=== PATIENT | male | born 1990 | race Caucasian/White ===

== ENCOUNTER 2020-08-21 11:01 | Emergency (ER) | payer SELFPAY ==
[2020-08-21 11:08] VITALS: BP 126/80; PULSE 89; RESP 16; TEMP 36.7; O2SAT 97; BMI 25.7
--- NOTE | 2020-08-21 11:55 | US_ITS ---
WS: [id number] TESTICULAR ULTRASOUND HISTORY: Pain ecchymosis COMPARISON: 03/25/2018 TECHNIQUE: Real-time and color Doppler imaging or utilized to perform a testicular ultrasound. Right testicle: 4.6 cm x 1.9 cm x 2.9 cm. Normal size and echogenicity. No mass or torsion. Normal color Doppler is present throughout. Systolic and diastolic velocities are both present. No significant hydrocele. There is a large amount of soft tissue thickening around the testicle and s crotal wall thickening. Right epididymis: Normal epididymis with no increased vascularity. Left testicle: 4.0 cm x 2.5 cm x 2.7 cm. LEFT testicle is normal size but it is being displaced posteriorly by a large complex fluid collectio n with multiple septations along the anterior testicle. There was a large simple hydrocele noted on a prior study from 2018. This is a complex collection with thick septations. Complex hydrocele measure s at least 4.9 x 7.7 cm. There is diffuse moderate scrotal wall thickening and edema. Normal color Doppler is present throughout. Systolic and diastolic velocities are both present. Left epididymis: Normal epididymis with no increased vascularity. US/US scrotum [id number] IMPRESSION: 1. No testicular torsion or mass. 2. Bilateral diffuse soft tissue thickening surrounding the testicles and scro james wall thickening. Favor this is probably blood products and less likely infe ction as there is no increased vascularity. 3. Large complex left-sided fluid collection surrounding the testicle. Probabl y a complex hydrocele. Could be resolving hematoma.
--- NOTE | 2020-08-21 12:05 | W.ED.MALEGU ---
HPI - Male Genitourinary General: Chief complaint: Urogenital-Male Stated complaint: Pain in Groin Area Time Seen by Provider: 08/21/20 11:52 History of Present Illness: HPI Narrative: 30-year-old male presents emergency room with significant swelling in the left testicle. He has discomfort as well. He states he was having intercourse last night and he felt a popping sensation now it is become what he describes as purple. He denies any dysuria urgency or frequency no hematuria no direct trauma to the testicle. No fever sweats or chills. 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 This was sometime ago. MD Complaint: testicle pain and testicle swelling Onset (ago): hour(s) Duration: constant Location: left testicle Radiation: left inguinal region Severity: mild Quality: aching Relieving factors: none Exacerbating factors: movement Associated symptoms: Deny discharge, dysuria, fevers/chills, hematuria, nausea, rash, swelling, urinary incontinence, urinary retention, mass or vomiting Review of Systems Const: Denies: fever(s), chills, body aches, change in appetite, fatigue or malaise ENMT: Denies: throat pain, ear or mastoid pain, nasal discharge or nasal congestion Card: Denies: chest pain, edema, dyspnea on exertion or orthopnea Resp: Denies: dyspnea, productive cough or non-productive cough GI: Denies: nausea or vomiting : Denies: dysuria, urinary incontinence or hematuria Skin/Breast: Denies: rash or pruritus PFSH ED PFSH: Medical History (Updated 08/21/20 @ 14:59 by Darell Glover MD) Metatarsal fracture Family History (Updated 08/21/20 @ 14:55 by Darell Glover MD) Denies family history of Anesthesia complication Bleeding disorder Social History (Updated 08/21/20 @ 14:57 by Darell Glover MD) Smoking and tobacco status: current some day smoker Alcohol intake: unknown Current occupational status: unemployed Sexually active: Yes Physical Exam Const: COMMON NORMALS: no acute distress GENERAL APPEARANCE: cooperative and comfortable ORIENTATION/CONSCIOUSNESS: Yes awake, Yes oriented to person, Yes oriented to place and Yes oriented to time HENMT: COMMON NORMALS: normocephalic, atraumatic and hearing grossly normal bilaterally HEAD & SCALP: normocephalic and atraumatic Neck/C-Spine: COMMON NORMALS: no JVD Resp: COMMON NORMALS: normal respiratory effort, No retractions, No use of accessory muscles and clear to auscultation bilaterally AUSCULTATION: clear to auscultation bilaterally Cardio: COMMON NORMALS: no JVD, regular rate, regular rhythm and No murmurs present (Cardio) RATE: regular rate RHYTHM: regular rhythm GI: COMMON NORMALS: Soft to palpation and No hepatosplenomegaly present AUSCULTATION: Yes normoactive bowel sounds PALPATION: Yes Soft to palpation, No Tenderness to palpation present (GI), No Guarding due to palpation present (GI) and Yes No hepatosplenomegaly present : OTHER: Significant swelling and ecchymosis moderate tenderness of the left testicle penis is normal circumcised with no evidence of trauma or bruising. There is no hernia. Seems to emanate directly from the scrotum rather than be a hernia defect. Neuro: SENSORIUM/ORIENTATION: Yes oriented to person, Yes oriented to place and Yes oriented to time Course Vital Signs: Vital signs: Vital Signs Temperature 98.1 F 08/21/20 11:08 Pulse Rate 76 08/21/20 15:11 Respiratory Rate 16 08/21/20 11:08 Blood Pressure 134/73 08/21/20 15:11 Pulse Oximetry 100 08/21/20 15:11 MDM - Male MDM Narrative: Medical decision making narrative: Dr. Glover came and seen the patient reviewed the ultrasound he feels it is a ruptured hydrocele does not need to intervene at this point he recommends follow-up in his office in a week discussed with the patient myself after Dr. Glover it seen and will discharge him home with diclofenac to use as needed. Lab Data: Labs: Lab Results 08/21/20 08/21/20 08/21/20 Range/Units 13:05 13:05 13:25 WBC 10.5 H (4.0-10.0) 10^3/ uL RBC 4.50 (4.1-5.3) 10^6/u L Hgb 14.4 (11.7-16.6) g/dL Hct 42.1 (42.0-52.0) % MCV 93.6 (80-94) fL MCH 32.0 (28.0-34.0) pg MCHC 34.2 (30.0-36.0) g/dL RDW 13.2 (12.1-15.1) % Plt Count 242 (130-400) 10^3/c mm MPV 9.9 (7.4-10.4) fL Neut % (Auto) 70.9 % Lymph % (Auto) 17.9 % [place] % (Auto) 8.7 % Eos % (Auto) 1.7 % Baso % (Auto) 0.5 % Neut # (Auto) 7.46 (1.8-7.7) 10^3/u L Lymph # (Auto) 1.9 (0.8-4.8) 10^3/u L [place] # (Auto) 0.9 (0.2-0.9) 10^3/u L Eos # (Auto) 0.2 (0.0-0.8) 10^3/u L Baso # (Auto) 0.1 (0.0-0.1) 10^3/u L Nucleated RBC % (a uto) 0 % Nucleated RBCs # 0.0 /100WBC Sodium 137 (136-145) mmol/L Potassium 4.2 (3.5-5.1) mmol/L Chloride 104 (98-107) mmol/L Carbon Dioxide 25 (22-29) mmol/L Anion Gap 12.2 (5-19) BUN 12 (6-20) mg/dL Creatinine 0.8 (0.7-1.2) mg/dL GFR Calculation 112.8 (90-130) mL/min Glucose 97 (65-115) mg/dL Calculated Osmolal ity 284 L (285-295) mOsm/k g Calcium 8.5 (8.5-10.5) mg/dL Urine Color Yellow (Yellow) Urine Appearance Hazy A (CLEAR) Urine pH 7 (5-7) Ur Specific Gravit y 1.010 (1.005-1.030) Urine Protein Neg (Negative) Urine Glucose (UA) Norm (Normal) Urine Ketones Negative (Negative) Urine Blood Neg (Negative) Urine Nitrate Negative (Negative) Urine Bilirubin Neg (Negative) Urine Urobilinogen 1 H (Negative) mg/dL Ur Leukocyte Maxine ase Negative (Negative) Urine RBC None (0-2) /hpf Urine WBC 0-4 H (0-5) /hpf Ur Squamous Epith Cells 5-10 H (0-5) /hpf Amorphous Sediment Not Reportable Urine Bacteria Trace (NONE) /hpf Discharge Plan Discharge Patient Disposition: Home Clinical Impression: Hydrocele Condition: Stable Prescriptions: New diclofenac sodium 75 mg tablet,delayed release (DR/EC) 75 mg PO Q12H PRN (Reason: pain) Qty: 20 RF: 0 Discharge Orders: Discharge ED (Routine); Ordered 08/21/20 Ordered By: Isauro Clarke Discharge Diet: Usual diet Discharge Activity: Resume usual activity Patient Instructions: Opioid Safety Activity Restrictions/Additional Instructions: His management will arrange for follow-up with Dr. Glover in his office in approximately 1 week. 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
[2020-08-21 12:09] VITALS: BP 130/87; PULSE 84; O2SAT 99
[2020-08-21 13:22] VITALS: PULSE 88; O2SAT 100
[2020-08-21 13:25] LABS: Basophils # 0.1 10^3/uL (0.0-0.1); Basophils % 0.5 %; Eosinophils # 0.2 10^3/uL (0.0-0.8); Eosinophils % 1.7 %; Hematocrit 42.1 % (42.0-52.0); Hemoglobin 14.4 g/dL (11.7-16.6); Lymphocytes # 1.9 10^3/uL (0.8-4.8); Lymphocytes % 17.9 %; Mean Corpuscular HGB Conc 34.2 g/dL (30.0-36.0); Mean Corpuscular Volume 93.6 fL (80-94); Mean Platelet Volume 9.9 fL (7.4-10.4); Monocytes # 0.9 10^3/uL (0.2-0.9); Monocytes % 8.7 %; Neutrophils # 7.46 10^3/uL (1.8-7.7); Neutrophils % 70.9 %; Nucleated Red Blood Cells % 0 %; Platelet Count 242 10^3/cmm (130-400); Red Cell Distribution Width 13.2 % (12.1-15.1); White Blood Count 10.5 10^3/uL (4.0-10.0)
[2020-08-21 13:43] LABS: Anion Gap 12.2 (5-19); Blood Urea Nitrogen 12 mg/dL (6-20); Calcium 8.5 mg/dL (8.5-10.5); Carbon Dioxide 25 mmol/L (22-29); Chloride 104 mmol/L (98-107); Glomerular Filtration Rate 112.8 mL/min (90-130); Glucose 97 mg/dL (65-115); Osmolality Calculated 284 mOsm/kg (285-295); Potassium 4.2 mmol/L (3.5-5.1); Sodium 137 mmol/L (136-145)
[2020-08-21 13:52] LABS: Glucose Urine UA Norm (Normal); Ketones Urine Negative (Negative); Protein Urine Neg (Negative); Urine Appearance Hazy (CLEAR); Urine Color Yellow (Yellow); pH Urine 7 (5-7)
[2020-08-21 13:53] LABS: Add Urine Microscopic? YES; Bilirubin Urine Neg (Negative); Blood Urine Neg (Negative); Leukocyte Esterase Urine Negative (Negative); Nitrate Urine Negative (Negative); Urobilinogen Urine 1 mg/dL (Negative)
[2020-08-21 13:58] LABS: WBC Urine 0-4 /hpf (0-5)
[2020-08-21 13:59] LABS: Add Urine Culture? No; Bacteria Urine TRACE /hpf
--- NOTE | 2020-08-21 14:47 | PM.CONSULT ---
Providers/Reason For Consult Consulting Physican/Specialty*: Urology/Glover Reason for Consult*: Scrotal trauma Requesting Ifrahan: Dr. Alavrez emergency department History of Present Illness History of Present Illness Bola Caruso is a 30 year old male who I apparently evaluated many years ago for a left asymptomatic hydrocele. At that time the decision was made to treat conservatively. He has not had any really significant problems related to the hydrocele until presenting today to the emergency department. 2 days ago during intercourse his fianc?e came down from top heavily and he felt a pop in his scrotum. Had associated pain in the scrotum. No penile pain no automatic detumescence or swelling of the penis. On examining the scrotum he noticed that his chronic hydrocele could no longer be palpated in his scrotum was deflated . Over the next 2 days he has had increasing discomfort and swelling. Bruising has occurred as well. No fever or chills no other significant symptoms systemically. An ultrasound was performed that showed intact testicles bilaterally, septated collection in the left tunica vaginalis consistent with acute bleed and possible hydrocele fluid. This was compared with his old ultrasound from several years ago that showed a simple hydrocele and normal testicle. Physical exam shows skin bruising and skin thickening and left hemiscrotal swelling without evidence of infection. There does appear to be a accumulation of fluid consistent with a hematocele or hydrocele. No severe tenderness. No evidence of hernia. The left testicle is not palpable because of the hematocele. The right testicle is normal. The phallus is also palpably normal and not swollen. No evidence of a penile fracture. Reviewed with the patient. Recommended conservative management with ice etc. I will see him back in 2 weeks in the clinic or sooner if he is having difficulty. We did review surgical options for hydrocele but would encourage if he wants to pursue that to avoid any surgery in the acute phase. Review of Systems Const: Denies: fever(s) or chills Eyes: Denies: change in vision or blurry vision ENMT: Denies: throat pain or hoarseness Card: Denies: chest pain Resp: Denies: dyspnea or productive cough GI: Reports: abdominal pain (Left groin) : Reports: other (Scrotal pain and swelling. See HPI); Denies: difficulty urinating, dysuria or hematuria Musc: Denies: neck pain, back pain or joint swelling Skin/Breast: Reports: erythema (See HPI for scrotal findings); Denies: rash Neuro: Denies: headache(s), confusion or Slurred speech present Psych: Denies: anxiety, depression or memory loss Endo: Denies: polyuria or hot flashes Tre/Lymph: Denies: easy bruising, easy bleeding or enlarged lymph nodes All/Imm: Denies: urticaria or acute wheezing Meds/Allergies Home Medications and Allergies Home Medications Medication Instructions Recorded Confirmed Last Taken Type diclofenac sodium 75 mg PO Q12H PRN #20 tab 08/21/20 Unknown Rx Allergies Allergy/AdvReac Type Severity Reaction Status Date / Time No Known Allergies Allergy Verified 08/21/20 11:12 PFSH Acute PFSH: Medical History (Updated 08/21/20 @ 14:59 by Darell Glover MD) Metatarsal fracture Family History (Updated 08/21/20 @ 14:55 by Darell Glover MD) Denies family history of Anesthesia complication Bleeding disorder Social History (Updated 08/21/20 @ 14:57 by Darell Glover MD) Smoking and tobacco status: current some day smoker Alcohol intake: unknown Current occupational status: unemployed Sexually active: Yes Vitals/I&O/Wt Last Vital Signs Temp 98.1 F 08/21/20 11:08 Pulse 88 08/21/20 13:22 Resp 16 08/21/20 11:08 BP 130/87 08/21/20 12:09 Pulse Ox 100 08/21/20 13:22 Weight last 48 hrs Weight 190 lb Physical Exam Const: COMMON NORMALS: no acute distress, alert and well nourished GENERAL APPEARANCE: well kempt and well developed ORIENTATION/CONSCIOUSNESS: not confused HENMT: COMMON NORMALS: normocephalic and atraumatic HEAD & SCALP: normocephalic and atraumatic Eye: COMMON NORMALS: conjunctivae normal and no scleral icterus CONJUNCTIVA: Yes conjunctivae normal Neck/C-Spine: GENERAL: Yes normal visual inspection Resp: COMMON NORMALS: normal respiratory effort EFFORT & INSPECTION: No labored and No Actively coughing GI: COMMON NORMALS: Soft to palpation PALPATION: Yes Soft to palpation and No Tenderness to palpation present (GI) RECTAL EXAM: Yes visual inspection normal, Yes normal sphincter tone, Yes prostate normal, No prostate abnormal and No mass : MALE GROIN/PERINEUM EXAM: No ecchymosis and No hernia PENIS: normal penis MEATUS: meatus normal, no meatla discharge and No Blood at meatus present TESTES: No absent testicle OTHER: Markedly swollen LEFT hemiscrotum with bruising and some redness. Skin is thickened. Palpably there is a hydrocele or hematocele. No hernia. Normal cord proximal to the swollen scrotum. Phallus is normal without evidence of fracture. The right testicle is normal. Neuro: SENSORIUM/ORIENTATION: Yes alert Psych: COMMON NORMALS: mental status grossly normal APPEARANCE: Yes grossly normal and Yes well kempt ATTITUDE: Yes calm and Yes engaged Skin: COMMON NORMALS: no rashes or lesions noted and no jaundice GENERAL SKIN EXAM: no rashes or lesions noted A&P Assessment and plan (1) Hematocele: Clinical evidence of hematocele both physical exam and ultrasound with clinical symptoms consistent with traumatic rupture. Status: Acute (2) Hydrocele: Chronic asymptomatic left hydrocele with recent trauma likely converting to hematocele. No evidence of testicular rupture on ultrasound. 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
[2020-08-21 15:11] VITALS: BP 134/73; PULSE 76; O2SAT 100
== END 2020-08-21 15:10 | disposition home or self-care (01) ==
PROVIDERS: Emergency Provider Family Medicine
DX: N43.3 Hydrocele, unspecified (principal); F17.210 Nicotine dependence, cigarettes, uncomplicated
CPT/HCPCS: 76870; 80048; 81001; 85025; 99283

== ENCOUNTER → 2021-01-15 14:49 | Outpatient (BNVA) | payer OTHER, SELFPAY | PROVIDERS: PCP Urology; Visit Provider Nurse Practitioner Family | DX: Z20.822 Contact with and (suspected) exposure to COVID-19 (principal) | CPT/HCPCS: 87635 ==

== ENCOUNTER 2021-02-14 18:48 | Emergency (ER) | payer OTHER, SELFPAY ==
[2021-02-14 19:06] VITALS: BP 141/69; PULSE 84; RESP 18; TEMP 36.6; O2SAT 97; BMI 27.1
--- NOTE | 2021-02-14 19:18 | ECG_ITS ---
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
[2021-02-14] MEDS: sodium chloride 0.9% 1,000 ML 999 ML IV (19:30)
--- NOTE | 2021-02-14 19:31 | W.ED.NEUROSD ---
HPI - Neuro Symptoms/Deficit General: Chief Complaint: Neuro Symptoms/Deficit Stated Complaint: electric shock, no engery, fall Time Seen by Provider: 02/14/21 19:15 Source: patient Mode of arrival: ambulatory Limitations: no limitations History of Present Illness: HPI Narrative: 31-year-old male states he was electrocuted yesterday with 220 well. He states since then he has had some generalized fatigue. He denies loss consciousness denies any headache or pain anywhere just that he has felt tired. Denies any vomiting or diarrhea. Denies any worsening improving factors. Associated symptoms: Deny chest pain, headache(s), nausea or vomiting Review of Systems Const: Denies: fever(s), chills, body aches or change in appetite Eyes: Denies: blurry vision or eye discomfort ENMT: Denies: throat pain or dental pain Card: Denies: chest pain Resp: Denies: dyspnea GI: Denies: abdominal pain, nausea, vomiting or diarrhea : Denies: dysuria Musc: Denies: neck pain or back pain Skin/Breast: Denies: rash Neuro: Reports: weakness in extremities; Denies: headache(s) Psych: Denies: depression Tre/Lymph: Denies: easy bruising All/Imm: Denies: urticaria PFSH ED PFSH: Medical History Metatarsal fracture Family History Denies family history of Anesthesia complication Bleeding disorder Social History Smoking and tobacco status: current some day smoker Alcohol intake: unknown Current occupational status: unemployed Sexually active: Yes Physical Exam Const: COMMON NORMALS: no acute distress, patient oriented x3 and healthy appearing HENMT: COMMON NORMALS: normocephalic and atraumatic HEAD & SCALP: normocephalic and atraumatic Eye: COMMON NORMALS: Equal, round and reactive pupils present and EOMs intact bilaterally PUPIL: Yes Equal, round and reactive pupils present Neck/C-Spine: COMMON NORMALS: full ROM and supple Chest: COMMONS NORMALS: normal inspection of the chest and normal palpation of entire chest wall Resp: COMMON NORMALS: normal respiratory effort, No retractions, No use of accessory muscles and clear to auscultation bilaterally AUSCULTATION: clear to auscultation bilaterally Cardio: COMMON NORMALS: regular rate, regular rhythm and No murmurs present (Cardio) RATE: regular rate RHYTHM: regular rhythm GI: COMMON NORMALS: Normal to inspection, nondistended, normoactive bowel sounds present, Soft to palpation, non-tender and no masses PALPATION: Yes Soft to palpation Extremity: COMMON NORMALS: normal to inspection and full ROM Neuro: COMMON NORMALS: patient oriented x3, moves all extremities and no focal motor deficits Psych: COMMON NORMALS: mental status grossly normal, Normal thought process present and cooperative THOUGHT PROCESS: Normal thought process present Skin: COMMON NORMALS: no rashes or lesions noted and no wounds GENERAL SKIN EXAM: no rashes or lesions noted Course Vital Signs: Vital signs: Vital Signs Temperature 97.9 F 02/14/21 19:06 Pulse Rate 89 02/14/21 20:29 Respiratory Rate 21 H 02/14/21 20:29 Blood Pressure 141/69 02/14/21 19:06 Pulse Oximetry 97 02/14/21 20:29 MDM - Neuro Symptoms/Deficit MDM Narrative: Medical decision making narrative: Patient presents today after a mild electrocution he is well-appearing here patient's blood work and EKG here are all normal. Patient is stable for discharge is to continue to hydrate he is to return if worsening. He understands agrees to plan. Lab Data: Labs: Lab Results 02/14/21 02/14/21 19:30 19:30 WBC 7.9 10^3/uL 10^3/ uL (4.0-10.0) RBC 4.65 10^6/uL 10^6 /uL (4.1-5.3) Hgb 14.8 g/dL g/dL (11.7-16.6) Hct 42.6 % % (42.0-52.0) MCV 91.6 fl fl (80-94) MCH 31.8 pg pg (28.0-34.0) MCHC 34.7 g/dL g/dL (30.0-36.0) RDW 13.2 % % (12.1-15.1) Plt Count 285 10^3/cmm 10^3 /cmm (130-400) MPV 9.4 fL fL (7.4-10.4) Neut % (Auto) 52.0 % % Lymph % (Auto) 37.4 % % [place] % (Auto) 7.1 % % Eos % (Auto) 2.5 % % Baso % (Auto) 0.6 % % Neut # (Auto) 4.11 10^3/uL 10^3 /uL (1.8-7.7) Lymph # (Auto) 3.0 10^3/uL 10^3/ uL (0.8-4.8) [place] # (Auto) 0.6 10^3/uL 10^3/ uL (0.2-0.9) Eos # (Auto) 0.2 10^3/uL 10^3/ uL (0.0-0.8) Baso # (Auto) 0.1 10^3/uL 10^3/ uL (0.0-0.1) Nucleated RBC % (a uto) 0 % % Nucleated RBCs # 0.0 /100WBC /100W BC Sodium 140 mmol/L mmol/L (136-145) Potassium 3.7 mmol/L mmol/L (3.5-5.1) Chloride 105 mmol/L mmol/L (98-107) Carbon Dioxide 22 mmol/L mmol/L (22-29) Anion Gap 16.7 (5-19) BUN 10 mg/dL mg/dL (6-20) Creatinine 0.9 mg/dL mg/dL (0.7-1.2) GFR Calculation 97.8 mL/min mL/mi n (90-130) Glucose 96 mg/dL mg/dL (65-115) Calculated Osmolal ity 289 mOsm/kg mOsm/ kg (285-295) Calcium 9.0 mg/dL mg/dL (8.5-10.5) Total Bilirubin 0.2 mg/dL mg/dL (0.15-1.2) AST 25 U/L U/L (0-40) ALT 19 U/L U/L (0-41) Alkaline Phosphata se 48 IU/L IU/L (40-130) Total Protein 6.8 g/dL g/dL (6.6-8.7) Albumin 4.4 g/dL g/dL (3.5-5.2) Globulin 2.4 g/dL g/dL (1.3-4.6) TSH 0.55 uIU/mL uIU/m L (0.27-4.20) Ethyl Alcohol 230 mg/dL H mg/dL (0-10) EKG Data^: EKG 1: Attestation: I personally reviewed and interpreted this EKG as follows: EKG interpretation date: 02/14/21 EKG interpretation time: 19:35 Interpretation: Normal sinus rhythm heart rate [address] or T wave ab maladies QRS 108 QTC 419 Discharge Plan Discharge Patient Disposition: Home Clinical Impression: Fatigue, Electrocution Condition: Stable Prescriptions: No Action No Known Home Medications RF: 0 Discharge Orders: Discharge ED (Routine); Ordered 02/14/21 Ordered By: Georgia Wang Discharge Diet: Advance as tolerated Discharge Activity: Resume usual activity Patient Instructions: Fatigue (ED) 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
[2021-02-14 19:39] LABS: Basophils # 0.1 10^3/uL (0.0-0.1); Basophils % 0.6 %; Eosinophils # 0.2 10^3/uL (0.0-0.8); Eosinophils % 2.5 %; Hematocrit 42.6 % (42.0-52.0); Hemoglobin 14.8 g/dL (11.7-16.6); Lymphocytes % 37.4 %; Mean Corpuscular HGB Conc 34.7 g/dL (30.0-36.0); Mean Corpuscular Hemoglobin 31.8 pg (28.0-34.0); Mean Corpuscular Volume 91.6 fl (80-94); Mean Platelet Volume 9.4 fL (7.4-10.4); Monocytes # 0.6 10^3/uL (0.2-0.9); Monocytes % 7.1 %; Neutrophils # 4.11 10^3/uL (1.8-7.7); Nucleated Red Blood Cells % 0 %; Platelet Count 285 10^3/cmm (130-400); Red Blood Count 4.65 10^6/uL (4.1-5.3); Red Cell Distribution Width 13.2 % (12.1-15.1); White Blood Count 7.9 10^3/uL (4.0-10.0)
[2021-02-14 20:06] LABS: Alanine Aminotransferase 19 U/L (0-41); Albumin Level 4.4 g/dL (3.5-5.2); Alcohol Level 230 mg/dL (0-10); Alkaline Phosphatase 48 IU/L (40-130); Anion Gap 16.7 (5-19); Aspartate Amino Transferase 25 U/L (0-40); Blood Urea Nitrogen 10 mg/dL (6-20); Carbon Dioxide 22 mmol/L (22-29); Chloride 105 mmol/L (98-107); Globulin 2.4 g/dL (1.3-4.6); Glomerular Filtration Rate 97.8 mL/min (90-130); Glucose 96 mg/dL (65-115); Osmolality Calculated 289 mOsm/kg (285-295); Potassium 3.7 mmol/L (3.5-5.1); Sodium 140 mmol/L (136-145); Thyroid Stimulating Hormone 0.55 uIU/mL (0.27-4.20); Total Bilirubin 0.2 mg/dL (0.15-1.2); Total Protein 6.8 g/dL (6.6-8.7)
[2021-02-14 20:29] VITALS: PULSE 89; RESP 21; O2SAT 97
[2021-02-14 20:50] VITALS: BP 138/68; PULSE 68; RESP 16; O2SAT 98
== END 2021-02-14 20:51 | disposition home or self-care (01) ==
PROVIDERS: Emergency Provider Emergency Medicine
DX: T75.4XXA Electrocution, initial encounter (principal); R53.83 Other fatigue; W86.8XXA Exposure to other electric current, initial encounter; F17.210 Nicotine dependence, cigarettes, uncomplicated
CPT/HCPCS: 80053; 80307; 84443; 85025; 93005; 96360; 99284; J7030

== ENCOUNTER → 2021-12-11 13:03 | Outpatient (BNVA) | payer SELFPAY | PROVIDERS: Visit Provider Emergency Medicine | DX: R19.8 Other specified symptoms and signs involving the digestive system and abdomen (principal); Z20.2 Contact with and (suspected) exposure to infections with a predominantly sexual mode of transmission; B34.9 Viral infection, unspecified | CPT/HCPCS: 81000; 86592; 87426; 87491; 87591; 87661 ==

== ENCOUNTER 2021-12-23 12:47 | Emergency (ER) | payer SELFPAY ==
--- NOTE | 2021-12-23 12:54 | XRR_ITS ---
PROCEDURE INFORMATION: Exam: XR Right Wrist Exam date and time: 12/23/2021 1:31 PM Age: 31 years old Clinical indication: Pain; Wrist; Right TECHNIQUE: Imaging protocol: Radiologic exam of the Right wrist. Views: 3 or more views. COMPARISON: No relevant prior studies available. FINDINGS: Bones/joints: Normal. Soft tissues: Normal. XR/XR wrist RT min 3V* [id number] IMPRESSION: No significant abnormality.
[2021-12-23 12:57] VITALS: BP 147/93; PULSE 71; RESP 18; TEMP 36.7; O2SAT 98; BMI 27.8
--- NOTE | 2021-12-23 13:21 | W.ED.EXTPRO ---
HPI - Extremity Problem General: Chief complaint: Extremity Injury, Upper Stated complaint: Right wrist injury Time Seen by Provider: 12/23/21 13:11 Source: patient Mode of arrival: ambulatory Limitations: no limitations History of Present Illness: 31-year-old male presents to the ER for right wrist pain x1 month. 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 Patient denies any known injury. He reports there is usually some swelling after days work. He has not take anything for it or done anything for the pain at this time. Patient denies any numbness or tingling. Review of Systems General: Reports: 10 or more systems reviewed and unremarkable except in HPI and below PFSH ED PFSH: Medical History Metatarsal fracture Family History Denies family history of Anesthesia complication Bleeding disorder Social History Smoking and tobacco status: current every day smoker Alcohol intake: unknown Current occupational status: unemployed Sexually active: Yes Physical Exam Const: COMMON NORMALS: no acute distress, average body habitus and patient oriented x3 Resp: COMMON NORMALS: normal respiratory effort EFFORT & INSPECTION: Yes able to speak in complete sentences Cardio: COMMON NORMALS: regular rate and regular rhythm RATE: regular rate RHYTHM: regular rhythm Extremity: NARRATIVE EXTREMITY EXAM: Patient has normal range of motion of the right wrist however there is noted to be some tenderness with flexion and extension at the greatest points. No obvious swelling. No deformities or bruising noted. Nontender to palpation Neuro: COMMON NORMALS: patient oriented x3 Psych: COMMON NORMALS: mental status grossly normal and Normal thought process present THOUGHT PROCESS: Normal thought process present Skin: COMMON NORMALS: no rashes or lesions noted and no wounds GENERAL SKIN EXAM: no rashes or lesions noted Course ED course: 31-year-old male presents to the ER for right wrist pain x1 month. 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 Patient denies any known injury. He reports there is usually some swelling after days work. He has not take anything for it or done anything for the pain at this time. Patient denies any numbness or tingling. We will get x-ray of the right wrist. Vital Signs: Vital signs: Vital Signs Temperature 98.0 F 12/23/21 12:57 Pulse Rate 71 12/23/21 12:57 Respiratory Rate 18 12/23/21 12:57 Blood Pressure 147/93 12/23/21 12:57 Pulse Oximetry 98 12/23/21 12:57 Oxygen Delivery Me thod 12/23/21 12:57 MDM - Extremity (Nontraumatic) Medical Decision Making 31-year-old male presents to the ER for right wrist pain x1 month. Patient reports he started a new job about a month ago and works in a [employer]. 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 Patient denies any known injury. He reports there is usually some swelling after days work. He has not take anything for it or done anything for the pain at this time. Patient denies any numbness or tingling. X-ray obtained of the right wrist. It appears normal with no acute changes. Likely this is a tendinitis due to overuse and repetitive motions. Discussed findings with patient. Recommended a Medrol Dosepak and anti-inflammatory. Recommended rest is much as possible however understand patient has to maintain a job. Patient should get a Velcro wrist brace and wear it while working. Give this 4 to 6 weeks. If no improvement in that time follow-up with PCP. Return to the ER with any new or worsening symptoms. Patient verbalized understanding and was in agreement with the treatment plan. Lab Data Radiology Impressions Wrist X-Ray 12/23/21 12:54 IMPRESSION: No significant abnormality. Critical Care Time Critical Care Time: Critical Care Time: No Discharge Plan Discharge Patient Disposition: Home Clinical Impression: Left wrist tendinitis Condition: Stable Prescriptions: New Medrol (Ricky) 4 mg tablets,dose pack See Rx Instructions .ROUTE .COMPLEX Qty: 21 0RF Rx Instructions: orally per package directions naproxen 500 mg tablet 500 mg PO Q12H PRN (Reason: pain) Qty: 14 0RF Discharge Orders: Discharge ED (Routine); Ordered 12/23/21 Ordered By: Nata Acevedo Discharge Diet: Usual diet Discharge Activity: Increase activity as tolerated Patient Instructions: Opioid Safety Activity Restrictions/Additional Instructions: Take Medrol Dosepak and naproxen as prescribed. Get an [id number] wrist brace and wear while working. Ice recommended twice daily, 20 minutes on 20 minutes off. Rest is much as possible. Follow-up with PCP in 2 to 3 weeks if no improvement. Return to the ER with any new or worsening symptoms. Coding Level of Care Code ED Equalizing Saw Operator for Vladimir Love
== END 2021-12-23 14:23 | disposition home or self-care (01) ==
PROVIDERS: Emergency Provider Physician Assistant
DX: M77.8 Other enthesopathies, not elsewhere classified (principal); F17.210 Nicotine dependence, cigarettes, uncomplicated
CPT/HCPCS: 73110; 99283

== ENCOUNTER 2023-02-12 12:03 | Emergency (ER) | payer MEDICAID, SELFPAY ==
[2023-02-12 12:10] VITALS: BP 151/88; PULSE 77; RESP 16; TEMP 36.5; O2SAT 96
[2023-02-12 12:25] VITALS: BP 151/88; PULSE 95; RESP 16; O2SAT 98
--- NOTE | 2023-02-12 12:25 | PC.NURSE ---
pt states he is currently in rehab
--- NOTE | 2023-02-12 12:31 | ECG_ITS ---
[facility] Test Date: 2023-02-12 Pat Name: Bola Caruso Department: Room: Gender: Male Rn Imaging: : 1990 Requested By: Isauro Corbett Order Number: [id number] Ana MD: Liana Alvarez M.D. Measurements Intervals [place] Rate: 67 P: 43 MT: 159 QRS: 21 QRSD: 101 T: 13 QT: 418 QTc: 443 Interpretive Statements SINUS RHYTHM MODERATE T-WAVE ABNORMALITY, CONSIDER ANTEROLATERAL ISCHEMIA [-0.1+ mV T-WAVE IN V3-V6] Heavy baseline artifact Compared to ECG 02/14/2021 19:35:21 Possible ischemia now present T-wave abnormality still present Electronically Signed On 02-12-2023 19:36:33 CDT by Liana Alvarez M.D. [id number]
--- NOTE | 2023-02-12 12:32 | W.ED.DIZZY ---
HPI - Dizziness General: Chief Complaint: Dizziness Stated Complaint: light headed Time Seen by Provider: 02/12/23 12:04 Source: patient Mode of arrival: ambulatory History of Present Illness: HPI Narrative: 33-year-old male presents to the emergency room complaining of tremors. Patient is a avid drinker. He drinks 2 pints a day for probably around the last 15 years per his report. He last drank last night he had 1 shot about 2024 minutes before he got here. He is trying to get into an inpatient rehab but have not yet secured a bed. He has not previously attempted to stop drinking no history of seizures denies any chronic medical problems denies any previous GI bleed or transfusion. MD elicited complaint: dizziness Exacerbating factors: nothing Relieving factors: nothing Associated symptoms: Denies chest pain or chills Review of Systems Const: Denies: fever(s) or chills Card: Denies: chest pain Resp: Denies: dyspnea GI: Denies: abdominal pain : Denies: dysuria, urinary frequency or urinary urgency Musc: Denies: neck pain or back pain Skin/Breast: Denies: rash PFSH ED PFSH: Medical History Metatarsal fracture Psychiatric care Family History Denies family history of Anesthesia complication Bleeding disorder Social History Smoking and tobacco/nicotine status: current every day tobacco/nicotine user Alcohol intake: unknown Current occupational status: unemployed Sexually active: Yes Physical Exam Const: COMMON NORMALS: no acute distress GENERAL APPEARANCE: cooperative and comfortable ORIENTATION/CONSCIOUSNESS: Yes awake, Yes oriented to person, Yes oriented to place and Yes oriented to time HENMT: COMMON NORMALS: normocephalic, atraumatic and hearing grossly normal bilaterally HEAD & SCALP: normocephalic and atraumatic Resp: COMMON NORMALS: normal respiratory effort, No retractions, No use of accessory muscles and clear to auscultation bilaterally AUSCULTATION: clear to auscultation bilaterally Cardio: COMMON NORMALS: regular rate, regular rhythm and No murmurs present (Cardio) RATE: regular rate RHYTHM: regular rhythm GI: COMMON NORMALS: Soft to palpation and No hepatosplenomegaly present AUSCULTATION: Yes normoactive bowel sounds PALPATION: Yes Soft to palpation, No Tenderness to palpation present (GI), No Guarding due to palpation present (GI) and Yes No hepatosplenomegaly present Extremity: COMMON NORMALS: normal to inspection, capillary refill normal, no clubbing, cyanosis or edema, no calf tenderness and no pedal edema Neuro: SENSORIUM/ORIENTATION: Yes oriented to person, Yes oriented to place and Yes oriented to time Skin: COMMON NORMALS: no rashes or lesions noted GENERAL SKIN EXAM: no rashes or lesions noted Course Vital Signs: Vital signs: Vital Signs Temperature 97.7 F 02/12/23 12:10 Pulse Rate 103 H 02/12/23 14:24 Respiratory Rate 17 02/12/23 14:24 Blood Pressure 137/82 02/12/23 14:24 Pulse Oximetry 99 02/12/23 14:24 Oxygen Delivery Me thod Room Air 02/12/23 12:38 MDM - Dizziness Medical Decision Making Encourage patient to pursue sobriety. He is no sign of DTs at this time. Neurologically he is intact did give him 2 of Ativan. He still has small amount of alcohol in his blood. He has stopped in the past without developing seizures. Discharge patient home encouraged to follow-up with an outpatient program or inpatient program whenever he can get into for assistance with abstinence. Medical Records I reviewed the patient's medical records. Lab Data I reviewed the patient's lab results. 02/12/23 12:32 02/12/23 12:32 Laboratory Results WBC 3.98 10^3/uL (3.29-11.43) 02/12/23 12:32 RBC 3.63 10^6/uL (3.85-5.65) L 02/12/23 12:32 Hgb 11.90 g/dL (11.27-16.99) 02/12/23 12:32 Hct 33.6 % (37-53) L 02/12/23 12:32 MCV 92.6 fl (82-101) 02/12/23 12:32 MCH 32.8 pg (27-33) 02/12/23 12:32 MCHC 35.4 g/dL (30-55) 02/12/23 12:32 RDW 16.4 % (12.1-15.1) H 02/12/23 12:32 Plt Count 99 10^3/cmm (157-399) L 02/12/23 12:32 MPV 10.8 fL (7.4-10.4) H 02/12/23 12:32 Neut % (Auto) 71.5 % 02/12/23 12:32 Lymph % (Auto) 21.4 % 02/12/23 12:32 [place] % (Auto) 5.3 % 02/12/23 12:32 Eos % (Auto) 0.5 % 02/12/23 12:32 Baso % (Auto) 1.0 % 02/12/23 12:32 Neut # (Auto) 2.85 10^3/uL (1.8-7.7) 02/12/23 12:32 Lymph # (Auto) 0.9 10^3/uL (0.8-4.8) 02/12/23 12:32 [place] # (Auto) 0.2 10^3/uL (0.2-0.9) 02/12/23 12:32 Eos # (Auto) 0.0 10^3/uL (0.0-0.8) 02/12/23 12:32 Baso # (Auto) 0.0 10^3/uL (0.0-0.1) 02/12/23 12:32 Nucleated RBC % (auto) 0 % 02/12/23 12:32 Nucleated RBCs # 0.0 /100WBC 02/12/23 12:32 PT 14.50 SECONDS (12.1-14.9) 02/12/23 12:32 INR 1.10 (0.8-1.2) 02/12/23 12:32 APTT 26.0 SECONDS (23.9-36.7) 02/12/23 12:32 Sodium 135 mmol/L (136-145) L 02/12/23 12:32 Potassium 3.2 mmol/L (3.5-5.1) L 02/12/23 12:32 Chloride 94 mmol/L (98-107) L 02/12/23 12:32 Carbon Dioxide 23 mmol/L (22-29) 02/12/23 12:32 Anion Gap 21.2 (5-19) H 02/12/23 12:32 BUN 2 mg/dL (6-20) L 02/12/23 12:32 Creatinine 0.5 mg/dL (0.7-1.2) L 02/12/23 12:32 GFR Calculation 190.3 mL/min (90-130) H 02/12/23 12:32 Glucose 196 mg/dL (65-115) H 02/12/23 12:32 Calculated Osmolality 282 mOsm/kg (285-295) L 02/12/23 12:32 Calcium 9.1 mg/dL (8.5-10.5) 02/12/23 12:32 Total Bilirubin 1.6 mg/dL (0.15-1.2) H 02/12/23 12:32 AST 597 U/L (0-40) H 02/12/23 12:32 ALT 186 U/L (0-41) H 02/12/23 12:32 Alkaline Phosphatase 109 U/L (40-130) 02/12/23 12:32 Total Protein 6.4 g/dL (6.6-8.7) L 02/12/23 12:32 Albumin 4.1 g/dL (3.5-5.2) 02/12/23 12:32 Globulin 2.3 g/dL (1.3-4.6) 02/12/23 12:32 Ethyl Alcohol 25 mg/dL (0-10) H 02/12/23 12:32 No radiology studies performed this visit Discharge Plan Discharge Patient Disposition: Home Clinical Impression: Severe alcohol dependence Condition: Stable Prescriptions: New promethazine 25 mg tablet 25 mg PO Q6H PRN (Reason: nausea and vomiting) Qty: 20 0RF pantoprazole 40 mg tablet,delayed release (DR/EC) 40 mg PO DAILY 56 Days Qty: 60 0RF Discharge Orders: Discharge ED (Routine); Ordered 02/12/23 Ordered By: Isauro Clarke Discharge Diet: Usual diet Discharge Activity: Increase activity as tolerated Patient Instructions: Alcohol Dependence (ED), Opioid Safety, Pain Management Coding Level of Care Code ED Weed Cooking Operator for Vladimir Love
[2023-02-12 12:38] VITALS: BP 151/88; PULSE 77; RESP 18; O2SAT 96
--- NOTE | 2023-02-12 12:48 | PC.NURSE ---
family at bedside, pt appears calm.
[2023-02-12 12:53] LABS: Eosinophils % 0.5 %; Hematocrit 33.6 % (37-53); Lymphocytes # 0.9 10^3/uL (0.8-4.8); Lymphocytes % 21.4 %; Mean Corpuscular HGB Conc 35.4 g/dL (30-55); Mean Corpuscular Hemoglobin 32.8 pg (27-33); Mean Corpuscular Volume 92.6 fl (82-101); Mean Platelet Volume 10.8 fL (7.4-10.4); Monocytes # 0.2 10^3/uL (0.2-0.9); Monocytes % 5.3 %; Neutrophils # 2.85 10^3/uL (1.8-7.7); Neutrophils % 71.5 %; Nucleated Red Blood Cells % 0 %; Platelet Count 99 10^3/cmm (157-399); Red Blood Count 3.63 10^6/uL (3.85-5.65); Red Cell Distribution Width 16.4 % (12.1-15.1); White Blood Count 3.98 10^3/uL (3.29-11.43)
[2023-02-12] MEDS: promethazine 25 mg/mL SDV 1 mL IM (12:54)
[2023-02-12] MEDS: famotidine 20 mg/2 mL INJ 40 MG IVP (12:57)
[2023-02-12] MEDS: sodium chloride 0.9% 1,000 ML 999 ML IV (12:57)
[2023-02-12] MEDS: LORazepam 2 mg Tablet PO (13:00)
[2023-02-12 13:01] LABS: Alanine Aminotransferase 186 U/L (0-41); Albumin Level 4.1 g/dL (3.5-5.2); Alcohol Level 25 mg/dL (0-10); Alkaline Phosphatase 109 U/L (40-130); Anion Gap 21.2 (5-19); Aspartate Amino Transferase 597 U/L (0-40); Blood Urea Nitrogen 2 mg/dL (6-20); Calcium 9.1 mg/dL (8.5-10.5); Carbon Dioxide 23 mmol/L (22-29); Chloride 94 mmol/L (98-107); Globulin 2.3 g/dL (1.3-4.6); Glomerular Filtration Rate 190.3 mL/min (90-130); Glucose 196 mg/dL (65-115); Osmolality Calculated 282 mOsm/kg (285-295); Potassium 3.2 mmol/L (3.5-5.1); Sodium 135 mmol/L (136-145); Total Bilirubin 1.6 mg/dL (0.15-1.2); Total Protein 6.4 g/dL (6.6-8.7)
[2023-02-12] MEDS: folic acid 1 mg Tablet PO (13:01)
[2023-02-12] MEDS: cyanocobalamin 1,000 mcg/mL SDV 1000 MCG IM (13:47)
[2023-02-12 14:24] VITALS: BP 137/82; PULSE 103; RESP 17; O2SAT 99
== END 2023-02-12 14:29 | disposition home or self-care (01) ==
PROVIDERS: Emergency Provider Family Medicine
DX: F10.20 Alcohol dependence, uncomplicated (principal); F17.210 Nicotine dependence, cigarettes, uncomplicated
CPT/HCPCS: 80053; 80307; 85025; 85610; 85730; 93005; 96372; 96374; 99284; J2550; J3420; J3490; J7030

== ENCOUNTER 2023-03-15 22:23 | Emergency (ER) | payer MEDICAID, SELFPAY ==
[2023-03-15 22:37] VITALS: BP 140/86; PULSE 113; RESP 18; TEMP 36.8; O2SAT 98; BMI 23.0
--- NOTE | 2023-03-16 00:10 | W.ED.PSYCHS ---
HPI - Psych General: Chief Complaint: Psychiatric Symptoms Stated Complaint: MHE Time Seen by Provider: 03/15/23 22:39 History of Present Illness: 33-year-old male who is anxious. He is a daily drinker, who was in rehabilitation until 07 March. He was at [facility]. He says that he made it Almost 10 days without alcohol, but then began to drink again. He says his last drink was 3 to 4 hours ago. He is incredibly anxious. He is fixated on drinking. He wants to stop. No vomiting. No hallucinations. No shakes. He is not suicidal or homicidal. Associated symptoms: Reports depression; Deny auditory hallucinations, visual hallucinations, homicidal ideation or suicidal ideation Review of Systems Const: Reports: night sweats; Denies: fever(s) Eyes: Denies: change in vision Card: Denies: chest pain Resp: Denies: dyspnea GI: Denies: abdominal pain or vomiting Neuro: Denies: headache(s) or confusion Psych: Reports: anxiety, depression and sleeping less; Denies: visual hallucinations, auditory hallucinations, tactile hallucinations, suicidal ideation or homicidal ideation PFS ED PFSH: Medical History Metatarsal fracture Psychiatric care Family History Denies family history of Anesthesia complication Bleeding disorder Social History Smoking and tobacco/nicotine status: current every day tobacco/nicotine user Alcohol intake: unknown Current occupational status: unemployed Sexually active: Yes Physical Exam Const: COMMON NORMALS: alert GENERAL APPEARANCE: cooperative and anxious; not ill appearing and not frail appearing ORIENTATION/CONSCIOUSNESS: not confused HENMT: COMMON NORMALS: normocephalic, atraumatic and Normal external nose present HEAD & SCALP: normocephalic and atraumatic FACE & SINUS: normal facial exam and face symmetric NOSE: Normal external nose present Eye: COMMON NORMALS: Equal, round and reactive pupils present and EOMs intact bilaterally PUPIL: Yes Equal, round and reactive pupils present Neck/C-Spine: GENERAL: Yes trachea midline Chest: CHEST: Yes Symmetrical chest wall rise Resp: COMMON NORMALS: normal respiratory effort, No retractions, No use of accessory muscles and clear to auscultation bilaterally AUSCULTATION: clear to auscultation bilaterally Cardio: COMMON NORMALS: regular rate and regular rhythm RATE: regular rate RHYTHM: regular rhythm GI: COMMON NORMALS: Normal to inspection, nondistended, normoactive bowel sounds present Extremity: COMMON NORMALS: no pedal edema Neuro: TRI COMA SCALE: document GCS findings [place] coma scale eye opening: Spontaneous Tri coma scale verbal response: Orientated Tri coma scale motor response: Obey commands [place] coma scale total score: 15 SENSORIUM/ORIENTATION: Yes alert SPEECH: speech normal SENSORY EXAM: Yes extremities (intact) MOTOR EXAM: Normal motor muscle tone present throughout Psych: COMMON NORMALS: speech normal APPEARANCE: Yes grossly normal ATTITUDE: Yes engaged ACTIVITY/MOTOR BEHAVIOR: Yes appropriate eye contact and Yes psychomotor agitation SPEECH: Yes normal speech MOOD & AFFECT: Yes anxious THOUGHT PROCESS: No disorganized THOUGHT CONTENT: No Suicidality present, No Homicidality present and No Hallucination(s) present ATTENTION/CONCENTRATION: Yes attention grossly intact and Yes concentration grossly intact MEMORY/COGNITION: Yes memory grossly intact and Yes cognition grossly intact INSIGHT: Fair insight present (Psych) JUDGEMENT: Fair judgement present (Psych) Skin: COMMON NORMALS: no rashes or lesions noted GENERAL SKIN EXAM: no rashes or lesions noted Course Vital Signs: Vital signs: Vital Signs Temperature 98.3 F 03/15/23 22:37 Pulse Rate 113 H 03/15/23 22:37 Respiratory Rate 18 03/15/23 22:37 Blood Pressure 140/86 03/15/23 22:37 Pulse Oximetry 98 03/15/23 22:37 Oxygen Delivery Me thod Room Air 03/15/23 22:37 MDM - Psych Medical Decision Making Medically, the patient is stable on screening exam. He is not suicidal or homicidal. He has paperwork from an inpatient alcohol rehab facility he was discharged from 9 days ago. He says he was there 3.5 days. He is given an injection of Ativan for anxiety. He will be placed on a tapering dose of Librium to prevent alcohol withdrawal symptoms. He is encouraged to follow-up with the rehab facility when he is able. We are not at detoxification facility, and therefore do not provide this service here. No radiology studies performed this visit Discharge Plan Discharge Patient Disposition: Home Clinical Impression: Severe alcohol dependence Condition: Stable Prescriptions: New chlordiazepoxide HCl 25 mg capsule 25 mg PO Q8H PRN (Reason: alcohol withdrawal) Qty: 16 0RF Rx Instructions: TID for 3d, BID for 2d, QD for 2d No Action promethazine 25 mg tablet 25 mg PO Q6H PRN (Reason: nausea and vomiting) Qty: 20 0RF pantoprazole 40 mg tablet,delayed release (DR/EC) 40 mg PO DAILY 56 Days Qty: 60 0RF Discharge Orders: Discharge ED (Routine); Ordered 03/16/23 Ordered By: Gabriel Ch Patient Instructions: Abuse of Alcohol (ED) Activity Restrictions/Additional Instructions: Abstain from alcohol. Take medication as directed to prevent alcohol withdrawal and anxiety related to alcohol withdrawal. Return for any thoughts or wishes to harm yourself or anyone else. Seek active alcohol rehabilitation facilities when available. Coding Level of Care Code ED Propagator for Vladimir Love
[2023-03-16] MEDS: LORazepam 2 mg/mL INJ 1 mL IM (00:23)
== END 2023-03-16 00:29 | disposition home or self-care (01) ==
PROVIDERS: Emergency Provider Emergency Medicine
DX: F10.20 Alcohol dependence, uncomplicated (principal); Z72.0 Tobacco use
CPT/HCPCS: 96372; 99284; J2060

== ENCOUNTER 2023-05-07 12:06 | Inpatient (IN) | payer MEDICAID, SELFPAY ==
[2023-05-07 12:18] VITALS: BMI 29.8
[2023-05-07 12:21] VITALS: BP 157/101; PULSE 107; RESP 15; TEMP 37.1; O2SAT 96
--- NOTE | 2023-05-07 12:57 | PC.PHAR ---
PT UNAPPROACHABLE DUE TO AGGITATION. MEDICATIONS RECONCILED BY EXTERNAL MED LIST ON DATE OF FILL. 05/07/23
[2023-05-07 13:16] LABS: Amphetamines Screen Urine Negative (Negative); Barbiturates Screen Urine Negative (Negative); Benzodiazepines Screen Urine Negative (Negative); Cocaine Screen Urine Negative (Negative); Opiate Screen Urine Negative (Negative); PCP Screen Urine Negative (Negative); THC Screen Urine Negative (Negative)
[2023-05-07 13:20] LABS: Add Urine Microscopic? YES; Amorphous Sediment Urine 2+ /hpf; Bacteria Urine TRACE /hpf; Bilirubin Urine Neg (Negative); Blood Urine Neg (Negative); Calcium Oxalate Crystals Urine 0-4 /hpf; Coarse Granular Casts Urine 0-4 /lpf; Glucose Urine UA Norm (Normal); Ketones Urine 1+ (Negative); Leukocyte Esterase Urine Trace (Negative); Mucus Urine TRACE /hpf; Nitrate Urine Negative (Negative); Protein Urine Trace (Negative); RBC Urine RARE /hpf (0-2); Specific Gravity, Urine 1.015 (1.005-1.030); Squamous Epithelial Cell Urine 0-4 /hpf (0-5); Urine Appearance Clear (CLEAR); Urine Color Yellow (Yellow); Urobilinogen Urine Neg (Negative); WBC Urine 0-4 /hpf (0-5); pH Urine 6.5 (5-7)
[2023-05-07 13:21] LABS: Add Urine Culture? No; Other Casts Urine EPITHELIAL /lpf
--- NOTE | 2023-05-07 13:40 | ECG_ITS ---
[facility] Test Date: 2023-05-07 Pat Name: Bola Caruso Department: Room: Gender: Male Rigger Supervisor: : 1990 Requested By: Vahe Bridges Order Number: [id number] Perez MD: Jose Carlos Fry M.D. Measurements Intervals [place] Rate: 91 P: 56 [place]: 161 QRS: 22 QRSD: 103 T: 40 QT: 356 QTc: 439 Interpretive Statements SINUS RHYTHM NONSPECIFIC T-WAVE ABNORMALITY Compared to ECG 02/12/2023 12:39:41 Possible ischemia no longer present T-wave abnormality still present Electronically Signed On 05-07-2023 18:56:49 RECEPTIONIST by Jose Carlos Fry M.D. [id number]
[2023-05-07 13:43] VITALS: PULSE 102; RESP 20; O2SAT 97
[2023-05-07] MEDS: LORazepam 1 mg Tablet PO (13:55)
[2023-05-07] MEDS: OLANZapine 10 mg ODT PO (13:55)
[2023-05-07 14:04] LABS: Basophils # 0.1 10^3/uL (0.0-0.1); Basophils % 0.7 %; Eosinophils # 0.1 10^3/uL (0.0-0.8); Eosinophils % 1.1 %; Hematocrit 44.9 % (37-53); Lymphocytes # 3.5 10^3/uL (0.8-4.8); Lymphocytes % 28.2 %; Mean Corpuscular HGB Conc 35.6 g/dL (30-55); Mean Corpuscular Hemoglobin 33.1 pg (27-33); Mean Platelet Volume 9.3 fL (7.4-10.4); Monocytes # 0.7 10^3/uL (0.2-0.9); Monocytes % 5.4 %; Neutrophils # 7.84 10^3/uL (1.8-7.7); Neutrophils % 64.2 %; Nucleated Red Blood Cells % 0 %; Platelet Count 246 10^3/cmm (157-399); Red Blood Count 4.83 10^6/uL (3.85-5.65); Red Cell Distribution Width 12.7 % (12.1-15.1); White Blood Count 12.23 10^3/uL (3.29-11.43)
[2023-05-07 14:27] LABS: Alanine Aminotransferase 54 U/L (0-41); Albumin Level 4.4 g/dL (3.5-5.2); Alkaline Phosphatase 53 U/L (40-130); Aspartate Amino Transferase 64 U/L (0-40); Blood Urea Nitrogen 12 mg/dL (6-20); Calcium 9.4 mg/dL (8.5-10.5); Carbon Dioxide 21 mmol/L (22-29); Chloride 107 mmol/L (98-107); Creatinine Clr Calc Pharmacy 212.1865; Globulin 2.3 g/dL (1.3-4.6); Glomerular Filtration Rate 154.2 mL/min (90-130); Glucose 101 mg/dL (65-115); Osmolality Calculated 294 mOsm/kg (285-295); Sodium 142 mmol/L (136-145); Thyroid Stimulating Hormone 0.35 uIU/mL (0.27-4.20); Total Bilirubin 0.2 mg/dL (0.15-1.2); Total Protein 6.7 g/dL (6.6-8.7)
[2023-05-07 14:30] LABS: Acetaminophen < 5.0 ug/mL (10-30); Salicylate < 0.3 mg/dL (3-10)
[2023-05-07 14:31] LABS: Alcohol Level 309 mg/dL (0-10); Anion Gap 18.2 (5-19); Potassium 4.2 mmol/L (3.5-5.1)
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
[2023-05-07 15:48] VITALS: BP 103/61; PULSE 95; RESP 13; TEMP 36.3; O2SAT 99
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
[2023-05-08] MEDS: folic acid 1 mg Tablet PO (08:53)
[2023-05-08] MEDS: thiamine 100 mg Tablet PO (08:53)
[2023-05-08] MEDS: nicotine 2 mg Gum BUCCAL ×3 (08:54→19:43)
[2023-05-08] MEDS: multivitamin therapeutic Tablet 1 TAB PO (08:54)
[2023-05-08 14:00] VITALS: BP 145/89; PULSE 80; RESP 16; TEMP 36.6; O2SAT 98
[2023-05-08 20:22] VITALS: BP 137/92; PULSE 92; RESP 17; TEMP 37.1; O2SAT 98
[2023-05-09] MEDS: multivitamin therapeutic Tablet 1 TAB PO (08:33)
[2023-05-09] MEDS: folic acid 1 mg Tablet PO (08:33)
[2023-05-09] MEDS: thiamine 100 mg Tablet PO (08:33)
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
[2023-05-09 10:49] VITALS: BP 137/92; PULSE 92; RESP 17; TEMP 37.1; O2SAT 98
== END 2023-05-09 11:45 | disposition home or self-care (01) | DRG 897 ==
LOC: ER 15:06 → NP 15:21
PROVIDERS: Admitting Provider Psychiatry & Neurology Psychiatry; Emergency Provider Emergency Medicine; Visit Provider Psychiatry & Neurology Psychiatry
DX: F10.220 Alcohol dependence with intoxication, uncomplicated (principal); R45.851 Suicidal ideations; F33.1 Major depressive disorder, recurrent, moderate; Y90.8 Blood alcohol level of 240 mg/100 ml or more; F17.210 Nicotine dependence, cigarettes, uncomplicated; F43.9 Reaction to severe stress, unspecified; F48.1 Depersonalization-derealization syndrome; N50.1 Vascular disorders of male genital organs; F41.9 Anxiety disorder, unspecified; Z81.8 Family history of other mental and behavioral disorders; Z81.3 Family history of other psychoactive substance abuse and dependence; Z62.811 Personal history of psychological abuse in childhood; Z62.810 Personal history of physical and sexual abuse in childhood
CPT/HCPCS: 80053; 80306; 80307; 81001; 84443; 85025; 93005; 97150; 97165; 99285

== ENCOUNTER 2023-05-13 12:32 | Inpatient (IN) | payer MEDICAID, SELFPAY ==
[2023-05-13 12:37] VITALS: BP 153/84; PULSE 88; RESP 16; TEMP 36.5; O2SAT 99; BMI 29.8
--- NOTE | 2023-05-13 12:42 | W.ED.PSYCHS ---
HPI - Psych General: Chief Complaint: Psychiatric Symptoms Stated Complaint: PHI Eval Time Seen by Provider: 05/13/23 12:34 Source: patient and family (mother) Mode of arrival: ambulatory Limitations: no limitations History of Present Illness: Patient is a 33-year-old male who presents to ED today along with his mother requesting hospitalization to [facility]. Patient was just discharged from [facility] approximately 4 days ago. Patient tells me he is suffering from anxiety, depression, and alcohol dependence. Patient states following his discharge from [facility] he went to [facility] but states he only stayed a day because the stress could not handle the facility. Patient feels like he needs to be on anxiolytics or antidepressants for his symptoms. He is having suicidal thoughts. He told triage he is having thoughts of wanting to hang himself in the [place] or drown himself in a barrel in the river. He has expressed to his mother he is having thoughts of wanting to shoot himself. Mother states there is a family history of psychiatric illness including schizoaffective disorder, bipolar, and paranoid schizophrenia. MD complaint: suicidal ideation and feels depressed Onset (ago): week(s) Duration: constant History of same: Yes Relieving factors: none Exacerbating factors: alcohol Context: recent alcohol abuse Associated psychiatric symptoms: depression and suicidal ideation Associated symptoms: Reports depression and suicidal ideation; Deny auditory hallucinations, visual hallucinations or homicidal ideation Treatments prior to arrival: none If self harm: admits thoughts of self harm Review of Systems Const: Denies: fever(s) or chills Card: Denies: chest pain, palpitations, lightheadedness or syncope Resp: Denies: dyspnea GI: Denies: abdominal pain, nausea, vomiting or diarrhea Skin/Breast: Denies: rash Neuro: Denies: headache(s) Psych: Reports: anxiety, depression, irritability and suicidal ideation; Denies: visual hallucinations, auditory hallucinations or homicidal ideation [facility] ED PFSH: Medical History Severe alcohol dependence Psychiatric care Metatarsal fracture Family History Denies family history of Anesthesia complication Bleeding disorder Social History Smoking and tobacco/nicotine status: current every day tobacco/nicotine user Alcohol intake: unknown Current occupational status: unemployed Sexually active: Yes Physical Exam Const: COMMON NORMALS: no acute distress, patient oriented x3, alert and well nourished GENERAL APPEARANCE: cooperative and well kempt Resp: COMMON NORMALS: normal respiratory effort and clear to auscultation bilaterally AUSCULTATION: clear to auscultation bilaterally Cardio: COMMON NORMALS: regular rate and regular rhythm RATE: regular rate RHYTHM: regular rhythm Neuro: COMMON NORMALS: patient oriented x3 SENSORIUM/ORIENTATION: Yes alert Psych: COMMON NORMALS: mental status grossly normal, Normal thought process present, cooperative, normal affect, speech normal, activity/motor behavior normal, denies hallucinations and denies homicidal ideation APPEARANCE: Yes grossly normal and Yes well kempt ATTITUDE: Yes calm ACTIVITY/MOTOR BEHAVIOR: Yes appropriate eye contact and No psychomotor agitation SPEECH: Yes normal speech MOOD & AFFECT: Yes euthymic mood THOUGHT PROCESS: Normal thought process present THOUGHT CONTENT: Yes Suicidality present ATTENTION/CONCENTRATION: Yes attention grossly intact and Yes concentration grossly intact MEMORY/COGNITION: Yes memory grossly intact and Yes cognition grossly intact INSIGHT: Good insight present (Psych) JUDGEMENT: Good judgement present (Psych) Course Consultations: Consultation #1: Dr. Chappell-accepts patient to [facility] Vital Signs: Vital signs: Vital Signs Temperature 97.7 F 05/13/23 12:37 Pulse Rate 88 05/13/23 12:37 Respiratory Rate 16 05/13/23 12:37 Blood Pressure 153/84 05/13/23 12:37 Pulse Oximetry 99 05/13/23 12:37 Oxygen Delivery Me thod Room Air 05/13/23 12:37 MDM - Psych Medical Decision Making Patient will be an admit to [facility] for evaluation of depression, suicidal ideations, anxiety, alcohol dependence. Affidavit has been placed on his chart. Differential Diagnosis Likely suicidal ideation, depression and acute anxiety Medical Records I reviewed the patient's medical records. Lab Data I reviewed the patient's lab results. 05/13/23 13:03 05/13/23 13:03 Laboratory Results WBC 9.49 10^3/uL (3.29-11.43) 05/13/23 13:03 RBC 4.95 10^6/uL (3.85-5.65) 05/13/23 13:03 Hgb 16.00 g/dL (11.27-16.99) 05/13/23 13:03 Hct 46.3 % (37-53) 05/13/23 13:03 MCV 93.5 fl (82-101) 05/13/23 13:03 MCH 32.3 pg (27-33) 05/13/23 13:03 MCHC 34.6 g/dL (30-55) 05/13/23 13:03 RDW 12.9 % (12.1-15.1) 05/13/23 13:03 Plt Count 244 10^3/cmm (157-399) 05/13/23 13:03 MPV 9.8 fL (7.4-10.4) 05/13/23 13:03 Neut % (Auto) 63.8 % 05/13/23 13:03 Lymph % (Auto) 24.1 % 05/13/23 13:03 [place] % (Auto) 6.6 % 05/13/23 13:03 Eos % (Auto) 4.0 % 05/13/23 13:03 Baso % (Auto) 1.3 % 05/13/23 13:03 Neut # (Auto) 6.05 10^3/uL (1.8-7.7) 05/13/23 13:03 Lymph # (Auto) 2.3 10^3/uL (0.8-4.8) 05/13/23 13:03 [place] # (Auto) 0.6 10^3/uL (0.2-0.9) 05/13/23 13:03 Eos # (Auto) 0.4 10^3/uL (0.0-0.8) 05/13/23 13:03 Baso # (Auto) 0.1 10^3/uL (0.0-0.1) 05/13/23 13:03 Nucleated RBC % (auto) 0 % 05/13/23 13:03 Nucleated RBCs # 0.0 /100WBC 05/13/23 13:03 Sodium 142 mmol/L (136-145) 05/13/23 13:03 Potassium 4.5 mmol/L (3.5-5.1) 05/13/23 13:03 Chloride 105 mmol/L (98-107) 05/13/23 13:03 Carbon Dioxide 28 mmol/L (22-29) 05/13/23 13:03 Anion Gap 13.5 (5-19) 05/13/23 13:03 BUN 13 mg/dL (6-20) 05/13/23 13:03 Creatinine 0.7 mg/dL (0.7-1.2) 05/13/23 13:03 GFR Calculation 129.1 mL/min (90-130) 05/13/23 13:03 Glucose 106 mg/dL (65-115) 05/13/23 13:03 Calculated Osmolality 295 mOsm/kg (285-295) 05/13/23 13:03 Calcium 10.2 mg/dL (8.5-10.5) 05/13/23 13:03 Total Bilirubin 0.2 mg/dL (0.15-1.2) 05/13/23 13:03 AST 99 U/L (0-40) H 05/13/23 13:03 ALT 91 U/L (0-41) H 05/13/23 13:03 Alkaline Phosphatase 58 U/L (40-130) 05/13/23 13:03 Total Protein 7.1 g/dL (6.6-8.7) 05/13/23 13:03 Albumin 4.5 g/dL (3.5-5.2) 05/13/23 13:03 Globulin 2.6 g/dL (1.3-4.6) 05/13/23 13:03 Salicylates < 0.3 mg/dL (3-10) L 05/13/23 13:03 Acetaminophen < 5.0 ug/mL (10-30) L 05/13/23 13:03 Ethyl Alcohol < 10 mg/dL (0-10) 05/13/23 13:03 No radiology studies performed this visit Discharge Plan Discharge Patient Disposition: Admitted As Inpatient Clinical Impression: Alcohol use disorder, severe, dependence, Suicidal ideation Condition: Stable Coding Level of Care Code ED Interlocking Tower Operator for Vladimir Love
--- NOTE | 2023-05-13 13:06 | PC.PHAR ---
pt states he has only been taking gabapentin 300mg tid [facility] last filled 03/25/23 30d/s no refills-[facility] states [facility] also filled hydroxyzine hcl 50mg qid prn filled 03/25/23 30d/s no refills,lexapro 10mg daily filled 11/21/22 30d/s rx has refills and protonix 40mg daily filled 02/13/23 30d/s no refills-
[2023-05-13 13:16] LABS: Basophils # 0.1 10^3/uL (0.0-0.1); Basophils % 1.3 %; Eosinophils # 0.4 10^3/uL (0.0-0.8); Hematocrit 46.3 % (37-53); Lymphocytes # 2.3 10^3/uL (0.8-4.8); Lymphocytes % 24.1 %; Mean Corpuscular HGB Conc 34.6 g/dL (30-55); Mean Corpuscular Hemoglobin 32.3 pg (27-33); Mean Corpuscular Volume 93.5 fl (82-101); Mean Platelet Volume 9.8 fL (7.4-10.4); Monocytes # 0.6 10^3/uL (0.2-0.9); Monocytes % 6.6 %; Neutrophils # 6.05 10^3/uL (1.8-7.7); Neutrophils % 63.8 %; Nucleated Red Blood Cells % 0 %; Platelet Count 244 10^3/cmm (157-399); Red Blood Count 4.95 10^6/uL (3.85-5.65); Red Cell Distribution Width 12.9 % (12.1-15.1); White Blood Count 9.49 10^3/uL (3.29-11.43)
[2023-05-13 13:36] LABS: Alanine Aminotransferase 91 U/L (0-41); Albumin Level 4.5 g/dL (3.5-5.2); Alkaline Phosphatase 58 U/L (40-130); Anion Gap 13.5 (5-19); Aspartate Amino Transferase 99 U/L (0-40); Blood Urea Nitrogen 13 mg/dL (6-20); Calcium 10.2 mg/dL (8.5-10.5); Carbon Dioxide 28 mmol/L (22-29); Chloride 105 mmol/L (98-107); Globulin 2.6 g/dL (1.3-4.6); Glomerular Filtration Rate 129.1 mL/min (90-130); Glucose 106 mg/dL (65-115); Osmolality Calculated 295 mOsm/kg (285-295); Potassium 4.5 mmol/L (3.5-5.1); Sodium 142 mmol/L (136-145); Total Bilirubin 0.2 mg/dL (0.15-1.2); Total Protein 7.1 g/dL (6.6-8.7)
[2023-05-13 13:38] LABS: Acetaminophen < 5.0 ug/mL (10-30); Alcohol Level < 10 mg/dL (0-10); Salicylate < 0.3 mg/dL (3-10)
[2023-05-13 14:16] LABS: Amphetamines Screen Urine Negative (Negative); Barbiturates Screen Urine Negative (Negative); Benzodiazepines Screen Urine Negative (Negative); Cocaine Screen Urine Negative (Negative); Opiate Screen Urine Negative (Negative); PCP Screen Urine Negative (Negative); THC Screen Urine Negative (Negative)
[2023-05-13 21:23] VITALS: BP 127/73; PULSE 95; RESP 17; O2SAT 97
[2023-05-13 21:59] VITALS: BP 134/81; PULSE 96; RESP 18; TEMP 36.6; O2SAT 99
[2023-05-14 06:00] VITALS: BP 117/79; PULSE 71; RESP 17; TEMP 36.4; O2SAT 98
[2023-05-14] MEDS: gabapentin 300 mg Capsule PO ×3 (08:57→20:39)
[2023-05-14] MEDS: nicotine 2 mg Gum BUCCAL ×4 (08:59→20:42)
[2023-05-14 14:00] VITALS: BP 137/88; PULSE 78; RESP 4; TEMP 36.6; O2SAT 98
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
[2023-05-14] MEDS: sertraline 50 mg Tablet 25 MG PO (17:54)
[2023-05-14] MEDS: trazodone 50 mg Tablet PO (20:39)
[2023-05-14 20:46] VITALS: BP 131/81; PULSE 86; RESP 18; TEMP 36.9; O2SAT 99
[2023-05-15] MEDS: sertraline 50 mg Tablet 25 MG PO (10:01)
[2023-05-15] MEDS: nicotine 2 mg Gum BUCCAL ×2 (10:02→19:34)
[2023-05-15] MEDS: gabapentin 300 mg Capsule PO ×3 (10:02→20:36)
[2023-05-15] MEDS: naltrexone hcl 50 mg Tablet PO (10:02)
[2023-05-15 14:00] VITALS: BP 126/85; PULSE 76; RESP 13; TEMP 36.6; O2SAT 100
--- NOTE | 2023-05-15 15:47 | W.PM.NPUPNS ---
Subjective NPU Subjective: 33-year-old male admitted with depression and anxiety with suicidal ideation with a history of alcohol dependence. He continued to report having some suicidal thoughts. He reported feeling extremely anxious. He had stated that he would like to consider a another potential inpatient substance abuse treatment facility if possible instead of the [facility]. He had reported interest in once a month Vivitrol for treating cravings for alcohol. He was compliant on the milieu. He stated that he was starting to feel a little better but reported some fleeting suicidal thoughts. He reported no current plan. He reported adequate sleep last night. He reported no side effects from his Zoloft. Mental Status Exam MSE Comments: This is an overweight but well-developed white male, in hospital scrubs, with adequate grooming and eye contact. No abnormal movements except for mild psychomotor retardation. He was cooperative with exam in no acute distress. Speech was normal in rate and volume. Mood described as depressed. His affect was mood congruent. Thought process was linear and organized. Thought content: patient denied homicidal ideation and endorsed suicidal ideation with no plan reported today. There were no delusions reported or noted, patient denied any auditory or visual hallucinations. Attention, concentration, and memory appeared intact, but none were formally tested. Alert and oriented x3. Insight is poor and judgment appeared poor. Impulse control is limited. Recent and remote memory were grossly intact. Vitals/I&O/Wt Last Vital Signs Temp 98.4 F 05/14/23 20:46 Pulse 86 05/14/23 20:46 Resp 18 05/14/23 20:46 BP 131/81 05/14/23 20:46 Pulse Ox 99 05/14/23 20:46 O2 Del Method Room Air 05/14/23 20:46 Data NPU 05/13/23 13:03 05/13/23 13:03 A&P Assessment and plan (1) Major depressive disorder, recurrent severe without psychotic features: (2) Suicidal ideation: (3) Alcohol use disorder, severe, dependence: (4) Trauma and stressor-related disorder: (5) Derealization: (6) Nicotine dependence, cigarettes, uncomplicated: (7) Hematocele: Plan This is a 33-year-old white male with a history of depression and anxiety and alcohol dependence readmitted after reporting worsening mood at the [facility] with suicidal ideation and a plan. 1.? Increase zoloft to 50mg daily, continue naltrexone 50mg daily to target alcohol cravings, 2.? Encourage individual, group, and milieu therapy. 3.? Continue q-15-minute checks for safety. 4.? Recommend sober living treatment at the highest level of care to which the patient is willing to commit. Involuntary Hold Information 96 Hour Hold: 96 Hour Involuntary Admission: No Attestations NPU Medical Necessity Statement*: Inpatient hospitalization is medically necessary and the clinically appropriate intervention, at this time. We will monitor medications and make changes as indicated. His likely length of stay is 2-4 days. Coding Level of Care Code Acute Code for [facility] Fwd Diagnoses Major depressive disorder, recurrent severe without psychotic features F33.2 Suicidal ideation R45.851 Alcohol use disorder, severe, dependence F10.20 Trauma and stressor-related disorder F43.9 Derealization F48.1 Nicotine dependence, cigarettes, uncomplicated F17.210 Hematocele N50.1
[2023-05-15 20:34] VITALS: BP 134/76; PULSE 76; RESP 16; TEMP 36.7; O2SAT 96
[2023-05-15] MEDS: trazodone 50 mg Tablet PO (20:36)
[2023-05-16 06:00] VITALS: BP 122/75; PULSE 89; RESP 18; TEMP 36.3; O2SAT 98
[2023-05-16] MEDS: gabapentin 300 mg Capsule PO ×3 (08:35→20:12)
[2023-05-16] MEDS: sertraline 50 mg Tablet PO (08:35)
[2023-05-16] MEDS: naltrexone hcl 50 mg Tablet PO (08:35)
[2023-05-16] MEDS: nicotine 2 mg Gum BUCCAL ×3 (13:42→20:19)
[2023-05-16 14:00] VITALS: BP 128/76; PULSE 111; RESP 16; TEMP 36.6; O2SAT 98
--- NOTE | 2023-05-16 16:20 | P.NPUPN_ITS ---
Subjective NPU 2 Subjective: 33-year-old male admitted with depressio n and anxiety with suicidal ideation with a history of alcohol dependence. The patient had reported that he was feeling less anxious. He reported no side effects from the Zoloft at this time. He had reported desire to begin IM Vivitrol but due to insurance purposes it did not appear possible. He had reported that he would consider going to [facility] for atul based treatment of addiction issues in lieu of returning to [facility]. He had reported that his suicidal thoughts had diminished. He had been less isolative on the milieu. He had reported some improvement in sleep. He had reported some cravings for alcohol but reported no side effects from his oral naltrexone. Mental Status Exam 2 MSE Comments: This is an overweight but well-developed white male, in hospital scrubs, with adequate grooming and eye contact. No abnormal movements except for mild psychomotor retardation. He was cooperative with exam in no acute distress. Speech was normal in rate and volume. Mood described as a little better. His affect remained restricted. Thought process was linear and organized. Thought content: patient denied homicidal ideation and endorsed no suicidal ideation today. There were no delusions reported or noted, patient denied any auditory or visual hallucinations. Attention, concentration, and memory appeared intact, but none were formally tested. Alert and oriented x3. Insight was improving and judgment appeared limited. Impulse control is improving. Recent and remote memory were grossly intact. Vitals/I&O/Wt Last Vital Signs Temp 97.3 F L 05/16/23 06:00 Pulse 89 05/16/23 06:00 Resp 18 05/16/23 06:00 BP 122/75 05/16/23 06:00 Pulse Ox 98 05/16/23 06:00 O2 Del Method Room Air 05/16/23 06:00 Data NPU 05/13/23 13:03 05/13/23 13:03 A&P Assessment and plan (1) Major depressive disorder, recurrent severe without psychotic features: (2) Suicidal ideation: (3) Alcohol use disorder, severe, dependence: (4) Trauma and stressor-related disorder: (5) Derealization: (6) Nicotine dependence, cigarettes, uncomplicated: (7) Hematocele: Plan This is a 33-year-old white male with a history of depression and anxiety and alcohol dependence readmitted after reporting worsening mood at [facility] with suicidal ideation and a plan. 1.? Increase zoloft to 75mg daily, continue naltrexone 50mg daily to target alcohol cravings, 2.? Encourage individual, group, and milieu therapy. 3.? Continue q-15-minute checks for safety. 4.? Recommend sober living treatment at the highest level of care to which the patient is willing to commit. Involuntary Hold Information 2 96 Hour Hold: 96 Hour Involuntary Admission: No Attestations NPU 2 Medical Necessity Statement*: Inpatient hospitalization is medically necessary and the clinically appropriate intervention, at this time. We will monitor medications and make changes as indicated. His likely length of stay is 1-3 days. Coding Level of Care Code Acute Code for [facility] Fwd Diagnoses Major depressive disorder, recurrent severe without psychotic features F33.2 Suicidal ideation R45.851 Alcohol use disorder, severe, dependence F10.20 Trauma and stressor-related disorder F43.9 Derealization F48.1 Nicotine dependence, cigarettes, uncomplicated F17.210 Hematocele N50.1
[2023-05-16] MEDS: trazodone 50 mg Tablet PO (20:12)
[2023-05-16 20:23] VITALS: BP 143/91; PULSE 72; RESP 18; TEMP 36.9; O2SAT 99
[2023-05-17 06:00] VITALS: RESP 16
[2023-05-17 08:00] VITALS: BP 143/91; PULSE 72; RESP 18; TEMP 36.9; O2SAT 99
[2023-05-17] MEDS: naltrexone hcl 50 mg Tablet PO (08:13)
[2023-05-17] MEDS: gabapentin 300 mg Capsule PO (08:13)
[2023-05-17] MEDS: sertraline 50 mg Tablet 75 MG PO (08:14)
[2023-05-17] MEDS: nicotine 2 mg Gum BUCCAL (13:35)
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
[2023-05-17 14:03] VITALS: BP 143/91; PULSE 72; RESP 18; TEMP 36.9; O2SAT 99
== END 2023-05-17 14:39 | disposition home or self-care (01) | DRG 885 ==
LOC: ER 18:28 → NP 20:08
PROVIDERS: Admitting Provider Psychiatry & Neurology Psychiatry; Emergency Provider Physician Assistant; Visit Provider Psychiatry & Neurology Psychiatry
DX: F33.2 Major depressive disorder, recurrent severe without psychotic features (principal); R45.851 Suicidal ideations; F10.20 Alcohol dependence, uncomplicated; F43.9 Reaction to severe stress, unspecified; F48.1 Depersonalization-derealization syndrome; F17.210 Nicotine dependence, cigarettes, uncomplicated; Z81.8 Family history of other mental and behavioral disorders; F41.9 Anxiety disorder, unspecified
CPT/HCPCS: 36415; 80053; 80306; 80307; 85025; 97150; 97165; 99285

== ENCOUNTER 2023-08-12 09:24 | Inpatient (IN) | payer MEDICAID, SELFPAY ==
[2023-08-12 09:34] VITALS: BP 127/78; PULSE 95; TEMP 36.8; O2SAT 96; BMI 29.8
[2023-08-12 10:14] LABS: Add Urine Microscopic? NO; Charge for UA Resulting for Rev
[2023-08-12 10:17] LABS: Bilirubin Urine Neg (Negative); Blood Urine Neg (Negative); Glucose Urine UA Norm (Normal); Ketones Urine Negative (Negative); Leukocyte Esterase Urine Negative (Negative); Nitrate Urine Negative (Negative); Protein Urine Neg (Negative); Urine Appearance Clear (CLEAR); Urine Color Yellow (Yellow); Urobilinogen Urine Neg (Negative); pH Urine 5 (5-7)
[2023-08-12 10:25] LABS: Amphetamines Screen Urine Positive (Negative); Barbiturates Screen Urine Negative (Negative); Benzodiazepines Screen Urine Negative (Negative); Cocaine Screen Urine Negative (Negative); Opiate Screen Urine Negative (Negative); PCP Screen Urine Negative (Negative); THC Screen Urine Negative (Negative)
--- NOTE | 2023-08-12 10:54 | ED.C_ITS ---
HPI - Psych 2 General: Chief Complaint: Psychiatric Symptoms Stated Complaint: MHE Time Seen by Provider: 08/12/23 09:33 History of Present Illness: Patient presents to the ER with suicidal ideation, confusion, hallucinations visual and auditory. Patient is homeless. Patient says he been drinking a lot of alcohol and smoking meth and says he just needs help for these thoughts get out of control. Patient says he has had many plans for suicide but just does not want to act on them so that is why he come here for help. Review of Systems 2 General: Reports: 10 or more systems reviewed and unremarkable except in HPI and below PFSH ED 2 PFSH: Medical History Severe alcohol dependence Psychiatric care Metatarsal fracture Family History Denies family history of Anesthesia complication Bleeding disorder Social History Smoking and tobacco/nicotine status: current every day tobacco/nicotine user Alcohol intake: unknown Current occupational status: unemployed Sexually active: Yes Physical Exam 2 Const: COMMON NORMALS: no acute distress, average body habitus, patient oriented x3, no limitations, healthy appearing, alert and well nourished HENMT: COMMON NORMALS: normocephalic, atraumatic, hearing grossly normal bilaterally, external ears normal, Normal external nose present, moist oral mucous membranes and oropharynx normal HEAD & SCALP: normocephalic and atraumatic NOSE: Normal external nose present EXTERNAL EAR: Yes external ears normal Neck/C-Spine: COMMON NORMALS: no JVD Chest: COMMONS NORMALS: normal inspection of the chest and normal palpation of entire chest wall Resp: COMMON NORMALS: normal respiratory effort, No retractions, No use of accessory muscles and clear to auscultation bilaterally AUSCULTATION: clear to auscultation bilaterally Cardio: COMMON NORMALS: no JVD, regular rate, regular rhythm, S1 normal heart sound present, S2 normal heart sound present, No gallops present (Cardio), No clicks present (Cardio), No murmurs present (Cardio) and No rub (Cardio) R ATE: regular rate RHYTHM: regular rhythm HEART SOUNDS: S1 normal heart sound present and S2 normal heart sound present GI: COMMON NORMALS: Normal to inspection, nondistended, normoactive bowel sounds present, Soft to palpation, non-tender, No hepatosplenomegaly present and no masses PALPATION: Yes Soft to palpation and Yes No hepatosplenomegaly present Neuro: COMMON NORMALS: patient oriented x3 SENSORIUM/ORIENTATION: Yes alert Course 2 Vital Signs: Vital signs: Vital Signs Temperature 98.2 F 08/12/23 09:34 Pulse Rate 95 08/12/23 09:34 Blood Pressure 127/78 08/12/23 09:34 Pulse Oximetry 96 08/12/23 09:34 Oxygen Delivery Me thod Room Air 08/12/23 09:34 MDM - Psych Medical Decision Making Patient be cleared medically by workup in a standard psychiatric type fashion in ER. Once cleared medically patient anticipated will be admitted to MPU for suicidal ideation for further evaluation and treatment. Once patient medically cleared Dr. Patel was consulted who agreed to place patient in MPU for further evaluation and treatment. Differential Diagnosis Likely acute psychosis and suicidal ideation; Unlikely chronic schizophrenia, bipolar disorder, depression, drug-induced psychotic disorder or acute anxiety Medical Records I reviewed the patient's medical records. Lab Data I reviewed the patient's lab results. 08/12/23 10:17 08/12/23 10:17 Laboratory Results WBC 6.93 10^3/uL (3.29-11.43) 08/12/23 10:17 RBC 4.68 10^6/uL (3.85-5.65) 08/12/23 10:17 Hgb 15.00 g/dL (11.27-16.99) 08/12/23 10:17 Hct 43.5 % (37-53) 08/12/23 10:17 MCV 92.9 fl (82-101) 08/12/23 10:17 MCH 32.1 pg (27-33) 08/12/23 10:17 MCHC 34.5 g/dL (30-55) 08/12/23 10:17 RDW 12.8 % (12.1-15.1) 08/12/23 10:17 Plt Count 255 10^3/cmm (157-399) 08/12/23 10:17 MPV 9.7 fL (7.4-10.4) 08/12/23 10:17 Neut % (Auto) 60.8 % 08/12/23 10:17 Lymph % (Auto) 29.4 % 08/12/23 10:17 Early % (Auto) 4.9 % 08/12/23 10:17 Eos % (Auto) 3.8 % 08/12/23 10:17 Baso % (Auto) 1.0 % 08/12/23 10:17 Neut # (Auto) 4.21 10^3/uL (1.8-7.7) 08/12/23 10:17 Lymph # (Auto) 2.0 10^3/uL (0.8-4.8) 08/12/23 10:17 Early # (Auto) 0.3 10^3/uL (0.2-0.9) 08/12/23 10:17 Eos # (Auto) 0.3 10^3/uL (0.0-0.8) 08/12/23 10:17 Baso # (Auto) 0.1 10^3/uL (0.0-0.1) 08/12/23 10:17 Nucleated RBC % (auto) 0 % 08/12/23 10:17 Nucleated RBCs # 0.0 /100WBC 08/12/23 10:17 Sodium 145 mmol/L (136-145) 08/12/23 10:17 Potassium 3.9 mmol/L (3.5-5.1) 08/12/23 10:17 Chloride 107 mmol/L (98-107) 08/12/23 10:17 Carbon Dioxide 23 mmol/L (22-29) 08/12/23 10:17 Anion Gap 18.9 (5-19) 08/12/23 10:17 BUN 13 mg/dL (6-20) 08/12/23 10:17 Creatinine 0.6 mg/dL (0.7-1.2) L 08/12/23 10:17 GFR Calculation 154.2 mL/min (90-130) H 08/12/23 10:17 Glucose 92 mg/dL (65-115) 08/12/23 10:17 Calculated Osmolality 300 mOsm/kg (285-295) H 08/12/23 10:17 Calcium 8.8 mg/dL (8.5-10.5) 08/12/23 10:17 Total Bilirubin 0.3 mg/dL (0.15-1.2) 08/12/23 10:17 AST 40 U/L (0-40) 08/12/23 10:17 ALT 31 U/L (0-41) 08/12/23 10:17 Alkaline Phosphatase 60 U/L (40-130) 08/12/23 10:17 Total Protein 7.1 g/dL (6.6-8.7) 08/12/23 10:17 Albumin 4.4 g/dL (3.5-5.2) 08/12/23 10:17 Globulin 2.7 g/dL (1.3-4.6) 08/12/23 10:17 Urine Color Yellow (Yellow) 08/12/23 09:29 Urine Appearance Clear (CLEAR) 08/12/23 09:29 Urine pH 5 (5-7) 08/12/23 09:29 Ur Specific [place] 1.020 (1.005-1.030) 08/12/23 09:29 Urine Protein Neg (Negative) 08/12/23 09:29 Urine Glucose (UA) Norm (Normal) 08/12/23 09:29 Urine Ketones Negative (Negative) 08/12/23 09:29 Urine Blood Neg (Negative) 08/12/23 09:29 Urine Nitrate Negative (Negative) 08/12/23 09:29 Urine Bilirubin Neg (Negative) 08/12/23 09:29 Urine Urobilinogen Neg mg/dL (Negative) 08/12/23 09:29 Ur Leukocyte Esterase Negative (Negative) 08/12/23 09:29 Salicylates < 0.3 mg/dL (3-10) L 08/12/23 10:17 Urine Opiates Screen Negative ng/mL (Negative) 08/12/23 09:29 Acetaminophen < 5.0 ug/mL (10-30) L 08/12/23 10:17 Ur Barbiturates Screen Negative ng/mL (Negative) 08/12/23 09:29 Ur Phencyclidine Scrn Negative ng/mL (Negative) 08/12/23 09:29 Ur Amphetamines Screen Positive ng/mL (Negative) H 08/12/23 09:29 U Benzodiazepines Scrn Negative ng/mL (Negative) 08/12/23 09:29 Urine Cocaine Screen Negative ng/mL (Negative) 08/12/23 09:29 U Marijuana (THC) Screen Negative ng/mL (Negative) 08/12/23 09:29 Ethyl Alcohol 123 mg/dL (0-10) H 08/12/23 10:17 All radiology interpretation(s) finalized by discharge Discharge Plan Discharge Patient Disposition: Admitted As Inpatient Clinical Impression: Amphetamine abuse, Suicidal ideation Condition: Stable Coding Level of Care Code ED Internet Ass[employer]or for Vladimir Love
[2023-08-12 10:56] LABS: Basophils # 0.1 10^3/uL (0.0-0.1); Eosinophils # 0.3 10^3/uL (0.0-0.8); Eosinophils % 3.8 %; Hematocrit 43.5 % (37-53); Lymphocytes % 29.4 %; Mean Corpuscular HGB Conc 34.5 g/dL (30-55); Mean Corpuscular Hemoglobin 32.1 pg (27-33); Mean Corpuscular Volume 92.9 fl (82-101); Mean Platelet Volume 9.7 fL (7.4-10.4); Monocytes # 0.3 10^3/uL (0.2-0.9); Monocytes % 4.9 %; Neutrophils # 4.21 10^3/uL (1.8-7.7); Neutrophils % 60.8 %; Nucleated Red Blood Cells % 0 %; Platelet Count 255 10^3/cmm (157-399); Red Blood Count 4.68 10^6/uL (3.85-5.65); Red Cell Distribution Width 12.8 % (12.1-15.1); White Blood Count 6.93 10^3/uL (3.29-11.43)
[2023-08-12 11:15] LABS: Alanine Aminotransferase 31 U/L (0-41); Albumin Level 4.4 g/dL (3.5-5.2); Alcohol Level 123 mg/dL (0-10); Alkaline Phosphatase 60 U/L (40-130); Anion Gap 18.9 (5-19); Aspartate Amino Transferase 40 U/L (0-40); Blood Urea Nitrogen 13 mg/dL (6-20); Calcium 8.8 mg/dL (8.5-10.5); Carbon Dioxide 23 mmol/L (22-29); Chloride 107 mmol/L (98-107); Creatinine Clr Calc Pharmacy 212.1865; Globulin 2.7 g/dL (1.3-4.6); Glomerular Filtration Rate 154.2 mL/min (90-130); Glucose 92 mg/dL (65-115); Osmolality Calculated 300 mOsm/kg (285-295); Potassium 3.9 mmol/L (3.5-5.1); Sodium 145 mmol/L (136-145); Total Bilirubin 0.3 mg/dL (0.15-1.2); Total Protein 7.1 g/dL (6.6-8.7)
[2023-08-12 11:16] LABS: Acetaminophen < 5.0 ug/mL (10-30); Salicylate < 0.3 mg/dL (3-10)
[2023-08-12 14:16] VITALS: BP 114/69; PULSE 87; RESP 20; TEMP 36.6; O2SAT 96
--- NOTE | 2023-08-12 14:40 | PC.NURSE ---
ADMIT NOTE PT CAME INTO THE ER WITH COMPLAINTS OF HALLUCINATIONS AND SI. UPON ADMIT TO THE NPU PT STATED THAT HE BROUGHT HIMSELF IN TO GET THROUGH HIS ALCOHOL DETOX SAFELY. PT STATES THAT HE HAS BEEN DRINKING DAILY FOR 15 YEARS BUT IT HAS INCREASED OVER THE LAST YEAR. PT STATED THAT HE TRIED TO STOP ON HIS OWN BUT FELT SEIZURY AND DECIDED TO COME TO THE HOSPITAL TO DO IT SAFELY.
[2023-08-12 15:56] VITALS: BP 120/70; PULSE 98; RESP 20; TEMP 36.7; O2SAT 96
[2023-08-12 19:28] VITALS: BP 154/77; PULSE 92; RESP 17; TEMP 36.8; O2SAT 98
[2023-08-12] MEDS: gabapentin 300 mg Capsule PO (20:07)
[2023-08-12] MEDS: trazodone 50 mg Tablet PO (20:07)
[2023-08-13] VITALS (7 sets, daily range): BP systolic 123–152; BP diastolic 69–89; PULSE 70–86; RESP 16–18; TEMP 36.6–36.9; O2SAT 96–98
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
[2023-08-13] MEDS: thiamine 100 mg Tablet PO (09:45)
[2023-08-13] MEDS: folic acid 1 mg Tablet PO (09:45)
[2023-08-13] MEDS: multivitamin therapeutic Tablet 1 TAB PO (09:45)
[2023-08-13] MEDS: sertraline 50 mg Tablet 75 MG PO (09:45)
[2023-08-13] MEDS: gabapentin 300 mg Capsule PO ×3 (09:45→20:11)
[2023-08-13] MEDS: trazodone 50 mg Tablet PO (20:11)
[2023-08-14 03:33] VITALS: BP 137/81; PULSE 73; RESP 17; O2SAT 98
[2023-08-14 08:00] VITALS: BP 124/78; PULSE 87; RESP 20; TEMP 36.6; O2SAT 98
[2023-08-14] MEDS: sertraline 50 mg Tablet 100 MG PO (08:34)
[2023-08-14] MEDS: gabapentin 300 mg Capsule PO (08:34)
[2023-08-14] MEDS: thiamine 100 mg Tablet PO (08:34)
[2023-08-14] MEDS: multivitamin therapeutic Tablet 1 TAB PO (08:34)
[2023-08-14] MEDS: folic acid 1 mg Tablet PO (08:35)
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
[2023-08-14 11:32] VITALS: BP 124/78; PULSE 87; RESP 20; TEMP 36.6; O2SAT 98
[2023-08-14] MEDS: VIVITROL 380 MG 380 EACH IM (11:53)
[2023-08-14 12:00] VITALS: BP 145/87; PULSE 84; RESP 20; TEMP 36.6; O2SAT 95
== END 2023-08-14 12:40 | disposition home or self-care (01) | DRG 885 ==
LOC: ER 12:05 → NP 12:17
PROVIDERS: Admitting Provider Psychiatry & Neurology Psychiatry; Emergency Provider Emergency Medicine; Visit Provider Psychiatry & Neurology Psychiatry
DX: F33.2 Major depressive disorder, recurrent severe without psychotic features (principal); R45.851 Suicidal ideations; Z59.00 Homelessness unspecified; F10.20 Alcohol dependence, uncomplicated; Y90.6 Blood alcohol level of 120-199 mg/100 ml; F43.9 Reaction to severe stress, unspecified; F48.1 Depersonalization-derealization syndrome; Z72.0 Tobacco use; R82.5 Elevated urine levels of drugs, medicaments and biological substances
CPT/HCPCS: 36415; 80053; 80306; 80307; 81003; 85025; 96372; 97165; 99285